=== PATIENT | female | born 1955 ===

== ENCOUNTER 2025-03-21 12:23 | Outpatient (AMB) | payer OTHER, SELFPAY ==
--- NOTE | 2025-03-21 12:27 | A.OFFVIS_ITS ---
Vital Signs 03/21/25 12:29 Height 4 ft 8 in Weight 141 lb BMI 31.6 BP 104/59 L Blood Pressure Location Lt brachial Position Sitting Respiration 16 Pulse 90 Pulse Source Pulse Oximeter Pulse Oximetry (%) 95 Oxygen Delivery Method Room Air Intake Visit Reasons: VERTEBROGENIC LOW BACK PAIN Electronic Integrated Systems Mechanic Required: Yes Electronic Integrated Systems Mechanic Services: Electronic Integrated Systems Mechanic Present Electronic Integrated Systems Mechanic Name: Electronic Integrated Systems Mechanic # [id number] Information Interpreted: clinical only Allergies atorvastatin Allergy (Unknown, Verified 03/21/25 12:38) Unknown ibuprofen (From Motrin) Allergy (Unknown, Verified 03/21/25 12:38) Unknown morphine (From MS Contin) Allergy (Unknown, Verified 03/21/25 12:38) Unknown Medication List - Last Reconciled 03/21/25 by Carol Morales LPN acetaminophen 325 mg PO BID PRN amlodipine-benazepril 5-10 mg 1 cap PO DAILY clonazepam 0.5 mg PO DAILY cyclobenzaprine 10 mg PO BEDTIME doxepin 75 mg PO BEDTIME empagliflozin (Jardiance) 25 mg PO DAILY lactulose 15 mL PO DAILY PRN levothyroxine 50 mcg PO DAILY melatonin 10 mg PO BEDTIME meloxicam 15 mg PO DAILY methocarbamol 750 mg PO BEDTIME metoprolol succinate ER 25 mg PO BID omeprazole 20 mg PO DAILY oxycodone 5 mg PO BID PRN plecanatide (Trulance) 3 mg PO DAILY rosuvastatin 10 mg PO DAILY sennosides (senna) 17.2 mg PO BEDTIME PRN tramadol 50 mg PO BID PRN triamcinolone acetonide 0.025% topical DAILY HPI Comments Details: History of Present Illness The patient is a 69 year old individual presenting with right-sided low back and buttock pain, which has been present for 5 years. The patient denies constant radiating pain down the leg but does experience intermittent symptoms in the leg. There is no associated numbness, weakness, or history of bowel or bladder incontinence. The pain averages an 8/10 in severity and can increase to 10/10. Symptoms are exacerbated by movement, bending, lifting, putting on shoes, prolonged walking, and prolonged sitting, with no known relieving factors. Past medication trials include oxycodone, tramadol, Tylenol, and ibuprofen. The patient has previously been evaluated by spine surgery and was deemed not to be a surgical candidate. Previous interventions included extensive physical therapy, lumbar facet injections, a lumbar radiofrequency ablation, and an L5 transforaminal epidural steroid injection, none of which provided significant relief. A DEXA scan revealed osteopenia. An MRI of the lumbar spine showed reactive changes at the L5-S1 facet joint and L1-L5 pedicle, as well as MODIC type 1 changes at the L5 and S1 vertebral endplates. Pain Description - Location: Right-sided low back and buttock region. - Onset: The pain has been present for 5 years. - Radiation: The patient denies constant radiation but reports intermittent symptoms into the leg. - Severity: Pain is rated as 8/10 on average and can go up to 10/10. - Exacerbating factors: Movements, bending, lifting, putting on shoes, prolonged walking, or prolonged sitting. - Relieving factors: There are no known relieving factors. Physical Exam - Neurologic: No numbness or weakness in the leg. - Musculoskeletal: On examination of the lumbar spine, there was pain with lateral rotation, bending, and flexion; lumbar extension was also limited. Any axial stress on the lumbar spine seemed to exacerbate the pain. Results - Bone Density: A DEXA scan showed osteopenia. - Imaging: MRI of the lumbar spine revealed reactive changes at the L5-S1 facet joint and the L1-L5 pedicle. There was also evidence of MODIC type 1 changes at the L5 and S1 vertebral endplates. Pain Management - Analgesia: The patient's pain is rated as 8/10 on average, reaching up to 10/10. Past medication trials include oxycodone, tramadol, Tylenol, and ibuprofen. - Activities of Daily Living: Pain is exacerbated by bending, lifting, putting on shoes, prolonged walking, and prolonged sitting. 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 Fibromyalgia Brachial neuritis Carpal tunnel syndrome of left wrist Degeneration of cervical intervertebral disc Osteoarthritis Lumbar spondylolysis Shoulder joint pain Chronic low back pain Lumbar radiculopathy Myofascial pain Muscle pain Physical Exam Vital Signs: Last Vital Signs Pulse 90 03/21/25 12:29 Resp 16 03/21/25 12:29 BP 104/59 L 03/21/25 12:29 Pulse Ox 95 03/21/25 12:29 Oxygen Delivery Method Room Air 03/21/25 12:29 BMI result Body Mass Index 31.6 Assessment & Plan Assessment & Plan (1) Vertebrogenic low back pain: Code(s): M54.51 - Vertebrogenic low back pain Category: Medical Plan Plan Patient was informed and verbally consented to the use of an ambient scribe for clinic note documentation during this visit. 1. Vertebrogenic low back pain M54.51 - The patient has chronic axial low back pain with MRI findings of MODIC type 1 changes at the L5 and S1 endplates, consistent with vertebrogenic pain. - The condition has been refractory to conservative management, including physical therapy, various medications, lumbar facet joint injections, lumbar radiofrequency ablation, and a lumbar epidural steroid injection. - Given the failure of other modalities, the patient is considered a reasonable candidate for basivertebral nerve ablation at the L4, L5, and S1 levels. - Authorization for this procedure will be requested from the insurance company. - The procedure will be scheduled once insurance authorization is obtained. Discussion Notes I discussed with the patient that given the history of chronic low back pain, MRI findings of MODIC type 1 changes at L5-S1, and failure to respond to multiple conservative treatments including physical therapy, medications, and various spinal injections, I believe the patient is a reasonable candidate for basivertebral nerve ablation. The proposed procedure involves ablation of the basivertebral nerve at the L4, L5, and S1 levels. I explained that we will proceed with requesting authorization from the insurance company and will schedule the procedure upon approval. The patient expressed understanding of the proposed plan. Patient Instructions - We have recommended a procedure called basivertebral nerve ablation for your chronic low back pain. - Our office will contact your insurance company to get approval for this procedure. - We will call you to schedule the procedure as soon as we receive authorization from your insurance. Coding Level of Care Code New Pt Level 4 (57250) Diagnoses Vertebrogenic low back pain M54.51
[2025-03-21 12:29] VITALS: BP 104/59; PULSE 90; RESP 16; O2SAT 95; BMI 31.6
--- OUTSIDE RECORDS SUMMARY | 2025-03-21 16:05 | XMS_ITS | Clinical Summary ---
Author Organization [facility] Address [address] [place] [address] Care Team Providers Care Product Marketing Programs Manager Name Role Phone Sheree Quiñonez Primary Care Provider [phone] Immunizations Immunization Administration Dates Next Due Moderna SARS-CoV-2 COVID-19, mRNA, LNP-S, preservative free 04/02/2021,07/22/2020,06/24/2020 Surgical History Surgery Date Site/Laterality Comments HYSTERECTOMY 2013 PROCEDURE: HISTORICAL HYSTERECTOMY; COMMENT: for uterine fibroids OTHER SURGICAL HISTORY PROCEDURE: NE PRTL THYROID LOBECTOMY UNI W/WO ISTHMUSECTOMY TUBAL LIGATION PROCEDURE: HISTORICAL TUBAL LIGATION CHOLECYSTECTOMY PROCEDURE: HISTORICAL CHOLECYSTECTOMY Medical History Medical History Date Comments Chronic neck pain fibromyalgia DX:Chronic nec k pain Fibromyalgia DX:Fibromyalgia Brachial neuritis DX:Brachial ne uritis Hypothyroidism DX:Hypothyroidis m HTN (hypertension) DX:HTN (hyper tension) JAIME (obstructive sleep apnea) DX :JAIME (obstructive sleep apnea) HTN (hypertension) DX:HTN (hyper tension) Type 2 diabetes mellitus wit h renal manifestations (CMS/HCC V24, CMS/HCC V28) 02/20/2022 DX: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) Gastroesophageal reflux dise ase without esophagitis 04/03/2022 DX:Gastroesophageal reflux d isease without esophagitis Constipation 04/03/2022 DX:Constipation Sleep apnea DX:Sleep apnea Chronic pain of both knees 04/03/2022 DX:Ch ronic pain of both knees Depression 02/20/2022 DX:Depression Anxiety 04/03/2022 DX:Anxiety Cervical radiculopathy DX:Cervic al radiculopathy Occipital neuralgia 04/03/2022 DX:Occipital neuralgia Family History Medical History Relation Name Comments Hypertension Brother 1 Other: stroke Brother 1 Stroke Brother 2 No Known Problems Father Diabetes Mother Hypertension Mother Stroke Mother Diabetes Sister Hypertension Sister Relation Name Status Comments Brother 1 Brother 2 Father Mother Sister Social History Tobacco Use Types Packs/Day Years Used Date Smoking Tobacco: Former Smokeless Tobacco: Former Alcohol Use Standard Drinks/Week Comments Not Currently 0 (1 standard drink = 0.6 oz pur e alcohol) Comments Unknown Sex and Gender Information Value Date Recorded Sex Assigned at Not on file Legal Sex Female 2:33 PM EST Gender Identity Not on file Sexual Orientation Not on file Obstetrics History Last Filed Vital Signs Vital Sign Reading Time Taken Comments Blood Pressure 120/60 02/06/2023 11:08 AM EDT Pulse 74 02/06/2023 11:08 AM EDT Temperature - - Respiratory Rate - - Oxygen Saturation - - Inhaled Oxygen Concentration - - Weight 63.5 kg (140 lb) 02/06/2023 11:08 AM EDT Height 142.2 cm (4' 8 ) 02/06/2023 11:08 AM EDT Body Mass Index 31.39 02/06/2023 11:08 AM EDT Plan of Treatment Health Maintenance Due Date Last Done Comments Breast Cancer Screening 1955 Colorectal Cancer Screening: Colonoscopy 1955 Diabetes: Annual GFR (Glomerular Filtration Rate) 1955 Diabetes: Annual Foot Exam 1965 Diabetes: Annual Retina Eye Exam 1965 DTaP,Tdap,and Td Vaccines (1 - Tdap) 1974 Pneumococcal Vaccine: 50+ Years (1 of 2 - PCV) 1974 RSV Immunization Adult Patients (1 - Risk 50-74 years 1-dose series) 2005 Zoster Vaccines (1 of 2) 2005 Cholesterol Screening (Lipid Panel) 03/30/2022 Diabetes: Annual Urine Albumin-Creatinine Ratio (uACR) 03/30/2022 Diabetes: Blood Sugar Contro l Test (HGBA1C) 03/30/2022 Falls Risk Assessment 03/30/2022 Hepatitis C Screening 03/30/2022 Hypertension/CHF/CAD Annual BMP Blood Test 03/30/2022 Osteoporosis Screening (Bone Density Screening) 03/30/2022 Social Influencers of Health Screening 03/30/2022 Depression Screening 04/21/2024 COVID-19 Vaccine (4 - 2024-2 6 season) 2024 04/02/2021, 07/22/2020, 06/24/2020 Influenza Vaccine (#1) 2024 Varicella Vaccines Aged Out 03/13/2018 No longer eligible based on patient's age to complete this topic HIB Vaccines Aged Out No longer eligi ble based on patient's age to complete this topic HPV Vaccines Aged Out No longer eligi ble based on patient's age to complete this topic Hepatitis A Vaccines Aged Out No long er eligible based on patient's age to complete this topic Hepatitis B Vaccines Aged Out No long er eligible based on patient's age to complete this topic IPV Vaccines Aged Out No longer eligi ble based on patient's age to complete this topic MMR Vaccines Aged Out No longer eligi ble based on patient's age to complete this topic Meningococcal ACWY Vaccine Aged Out N o longer eligible based on patient's age to complete this topic Meningococcal B Vaccine Aged Out No l onger eligible based on patient's age to complete this topic RSV Immunization Patients Under 20 months Aged Out No longer eligible b ased on patient's age to complete this topic Care Teams Product Marketing Programs Manager Relationship Specialty Start Date End Date Sheree Quiñonez PA [address] [place] [id number] PCP - General Internal Medicine 08/19/18
--- OUTSIDE RECORDS SUMMARY | 2025-03-21 16:05 | XMS_ITS | Data Portability ---
Author Organization [facility] [place] [facility], [facility] Address [address] [place] [address] Care Team Providers Care Senior Bi Architect Name Role Phone [facility] Primary Care P [email or web address] Assessment Encounter Date Assessment Date Assessment LastModified by Organization Details LastModified Time 08/24/2024 08/24/2024 Assessment: Pain in her right shoulder and B elbows seems to be improving. Good tolerance to all ther-ex for strengthening but quickly fatigues. Plan: Continue to progress UE strengthening as tolerated (08/31). [email or web address] Not available 08/24/2024 15:03:49 08/26/2024 08/26/2024 Assessment: Pain in her right shoulder and B elbows seems to be improving. Good tolerance to all ther-ex for strengthening but quickly fatigues. Plan: Continue to progress UE strengthening as tolerated (08/31). [email or web address] Not available 08/25/2024 19:34:12 08/31/2024 08/31/2024 Assessment: Pt appears to understand HEP. Plan: D/C today. [email or web address] Not available 08/31/2024 14:32:35 09/01/2024 09/01/2024 69-year-old ojlgj-qltu-yvxgxox t female who returns today for follow-up evaluation of bilateral medial and lateral epicondylitis and numbness of the right upper extremity status post a course of physical therapy with resolution of pain and numbness and tingling. She may follow-up symptomatically going forward [email or web address] Not available 09/01/2024 13:16:34 10/15/2024 10/15/2024 I am seeing the patient today under the supervision of Dr. Madera who was available but who did not see the patient. HPI: Patient comes in for recheck of right shoulder pain. Was last seen by my colleague for underlying impingement and received a cortisone injection with only a few weeks. Pain is returned over the last couple weeks over the lateral brachium. Has had no new injuries no other modalities. Past family, medical, social history and review of systems has been reviewed, updated and is located in the patient s chart. Examination: The patient is well appearing and in no apparent distress. Alert and oriented x3. Gait is symmetric. Vital signs per intake sheet . Evaluation of the right shoulder has no effusion erythema or warmth. Good muscle bulk when compared bilaterally. Has supple range of motion of that shoulder. 5/5 strength rotator cuff and biceps tendon. Positive impingement arc negative cross body. Impression: Impingement right shoulder Plan: Nature diagnosis discussed with patient today. Both surgical and nonsurgical options are reviewed. Conservative measures were discussed at length including but not limited to physical therapy, bracing, anti-inflammatorie s and injection therapies. Patient would like to try another injection. Follow-up as symptoms dictate. Associated Content [facility] reMail speech recognition residential recycle driver software was used to create portions of this document. An attempt at proofreading has been made to minimize errors. Please call for corrections. [email or web address] Not available 10/15/2024 13:17:18 Plan of Treatment Reminders Order Date Submit Date Provider Last Modified By Organization Details Last Modified Time Details Appointments None record ed. Lab None record ed. Referral None record ed. Procedures None record ed. Surgeries None record ed. Imaging None record ed. Medication Orders None record ed. Patient TargetsNo targets recorded. Patient InstructionsNo instructions recorded. Reason for Referral None Reported. Problems Name Problem SNOMED Code Status Onset Date Resolution Date Notes Provider Name and Address Organization Details Recorded Time No complaint s 921812737 Active Status: 'I'; Not Available [facility] 4 09:11:13 Idiopathi c osteoarth ritis 298401213 Active 2019 Problem Code: M19.071; Problem Code Type: ICD-10; Status: 'A'; Not Available [facility] 4 10:55:43 Pain of left knee joint 864283469836 107 Active 2023 alvarado antoni bearden [place] - [facility] 4 13:04:42 Postmenop ausal osteopeni a 235370166 Active 2023 Jovani Mackenzie MD [address], [place], [address] , [facility] 4 09:26:30 Lumbar spondylos is 801230092 Active 2023 Jovani Mackenzie MD [address], [place], [address] , [facility] 4 09:26:31 Lumbar radiculop athy 372840593 [facility] 4 11:55:26 Pain of elbow region 27094851 Active 2024 Wale Miramontes PA-C [address], [place], [address] , [facility] 5 10:17:34 Bilateral lateral elbow tendinopa thy 612494589792 20888 Active 2024 Wale Miramontes PA-C [address], [place], [address] , [facility] 5 10:17:34 Bilateral medial epicondyl itis of elbows 153890918929 05301 Active 2024 Wale Miramontes PA-C [address], [place], [address] , [facility] 5 10:17:34 Problem Notes None recorded. Procedures Surgical History Date Name Laterality Status Provider Name and Address Organization Details Recorded Time 5 Sports Shoulder completed Fam Ricks PA-C [address], [place], [address], [facility] 10/15/2024 08:37:43 5 85781 Therapeutic Exercise (1:1) completed Reina Christianson PTA [address], [place], [address], [facility] 08/31/2024 14:12:44 5 81594: Hot or Cold Pack completed Reina Christianson PTA [address], [place], [address], [facility] 08/30/2024 13:32:05 5 40353: Manual therapy completed Reina Christianson PTA [address], [place], [address], [facility] 08/31/2024 14:12:46 5 36481 Therapeutic Exercise (1:1) completed Reina Christianson PTA [address], [place], [address], [facility] 08/25/2024 19:34:12 5 67436: Hot or Cold Pack completed Reina Christianson PTA [address], [place], [address], [facility] 08/25/2024 19:34:12 5 35934: Manual therapy completed Reina Christianson PTA [address], [place], [address], [facility] 08/25/2024 19:34:12 5 98009 Therapeutic Exercise (1:1) completed Nicho Hutton DPT [address], [place], [address], [facility] 08/23/2024 20:38:42 5 10867: Hot or Cold Pack completed Nicho Hutton DPT [address], [place], [address], [facility] 08/23/2024 20:38:42 5 23799: Manual therapy completed Nicho Hutton DPT [address], [place], [address], [facility] 08/23/2024 20:38:43 5 98201 Therapeutic Exercise (1:1) completed Reina Christianson, EQUIPMENT MAINTENANCE TECH [address], [place], [address], [facility] 08/19/2024 13:40:31 5 65491: Hot or Cold Pack completed Reina Christianson, EQUIPMENT MAINTENANCE TECH [address], [place], [address], [facility] 08/18/2024 20:11:17 5 79256: Manual therapy completed Reina Christianson, EQUIPMENT MAINTENANCE TECH [address], [place], [address], [facility] 08/18/2024 20:11:17 5 37226 Therapeutic Exercise (1:1) completed Reina Christianson, EQUIPMENT MAINTENANCE TECH [address], [place], [address], [facility] 08/17/2024 13:34:52 5 11354: Hot or Cold Pack completed Reina Christianson, EQUIPMENT MAINTENANCE TECH [address], [place], [address], [facility] 08/16/2024 20:15:59 5 85872: Manual therapy completed Reina Christianson, EQUIPMENT MAINTENANCE TECH [address], [place], [address], [facility] 08/17/2024 13:34:40 5 97647 Therapeutic Exercise (1:1) completed Reina Christianson, EQUIPMENT MAINTENANCE TECH [address], [place], [address], [facility] 08/11/2024 20:06:28 5 87344: Hot or Cold Pack completed Reina Christianson, EQUIPMENT MAINTENANCE TECH [address], [place], [address], [facility] 08/11/2024 20:06:28 5 05281 Therapeutic Exercise (1:1) completed Reina Christianson, EQUIPMENT MAINTENANCE TECH [address], [place], [address], [facility] 08/09/2024 15:05:48 5 46036: Hot or Cold Pack completed Nicho Hutton DPT [address], [place], [address], [facility] 08/10/2024 09:35:35 5 64041 Therapeutic Exercise (1:1) completed Reina Christianson PTA [address], [place], [address], [facility] 08/04/2024 16:43:17 5 08530: Manual therapy completed Reina Christianson PTA [address], [place], [address], [facility] 08/04/2024 16:43:17 5 57487 Therapeutic Exercise (1:1) completed Reina Christianson PTA [address], [place], [address], [facility] 08/02/2024 15:10:44 5 58298: Manual therapy completed Reina Christianson PTA [address], [place], [address], [facility] 08/02/2024 15:10:44 5 33830 Therapeutic Exercise (1:1) completed Reina Christianson PTA [address], [place], [address], [facility] 07/28/2024 19:25:21 5 37789: Manual therapy completed Reina Christianson PTA [address], [place], [address], [facility] 07/29/2024 15:16:21 5 47225 Therapeutic Exercise (1:1) completed Reina Christianson PTA [address], [place], [address], [facility] 07/26/2024 19:39:24 5 88767: Manual therapy completed Reina Christianson PTA [address], [place], [address], [facility] 07/27/2024 15:07:29 5 57321 Therapeutic Exercise (1:1) completed Nicho Hutton DPT [address], [place], [address], [facility] 07/22/2024 13:10:46 5 39169: Manual therapy completed Nicho Hutton DPT [address], [place], [address], [facility] 07/23/2024 13:43:11 5 84036 Therapeutic Exercise (1:1) completed Nicho Hutton DPT [address], [place], [address], [facility] 07/20/2024 13:57:48 5 82062: Manual therapy completed Nicho Hutton DPT [address], [place], [address], [facility] 07/20/2024 13:57:54 5 53108 Therapeutic Exercise (1:1) completed Nicho Hutton DPT [address], [place], [address], [facility] 07/15/2024 14:28:03 5 05861: Low complexity PT Eval completed Nicho Hutton DPT [address], [place], [address], [facility] 07/15/2024 14:28:10 4 38379 Therapeutic Exercise (1:1) completed Nicho Hutton DPT [address], [place], [address], [facility] 01/14/2024 09:46:30 4 85430: Low complexity PT Eval completed Nicho Hutton DPT [address], [place], [address], [facility] 01/14/2024 09:46:32 4 Sports Shoulder completed Reid Randolph MD [address], [place], [address], [facility] 11/03/2023 13:29:55 Imaging Results None recorded. Procedure Notes None recorded. Medical Equipment None Reported. Allergies Allergen ID Allergen Name Allergen Category Reaction Reaction Severity Criticality Documentation Date Start Date Code Code System Note Provider Name and Address Organization Details Recorded Time 927359 Motrin medicatio n Not available Not available Not available 02/05/202491691 8 RxNorm CAROLYN AMY [facility] 4 08:31:19 49227 atorvasta tin calcium medicatio n Not available Not available Not available 06/23/20232017 51530 RxNorm CAROLYN REYES [facility] 4 08:31:15 Medications Name Sig Start Date Stop Date Status Note LastModified by Organization Details LastModified Time melatonin tab 10mg active Not Available Not Available Not Available doxepin 50 mg capsule TAKE 1 CAPSULE BY MOUTH AT BEDTIME active Not Available Not Available No t Available acetaminoph en 325 mg tablet TAKE 1 TABLET BY MOUTH two (2) times a day NEEDED FOR PAIN. TAKE WITH tramadol two (2) times a day active Not Available Not Available No t Available amitriptyli ne 75 mg tablet 02/04 completed Not Available Not Available Not Available senna 8.6 mg tablet active Not Available Not Available No t Available meloxicam 15 mg tablet TAKE 1 TABLET BY MOUTH DAILY 11/20 completed Not Available Not Available Not Available sucralfate 1 gram tablet 04/29 completed Not Available Not Available Not Available FreeStyle Lancets 28 gauge USE TO TEST FINGER STICK BLOOD SUGAR two (2) times a day 09/01 completed Not Available Not Available Not Available clonazepam 0.5 mg tablet TAKE 1 TABLET BY MOUTH EVERY NIGHT AT BEDTIME active Not Available Not Available No t Available doxepin 75 mg capsule TAKE 1 CAPSULE BY MOUTH EVERY NIGHT AT BEDTIME active Not Available Not Available No t Available tramadol 50 mg tablet TAKE 1 TABLET BY MOUTH EVERY TWELVE HOURS NEEDED FOR PAIN. TAKE WITH acetamino phen 325mg active Not Available Not Available No t Available amitriptyli ne 50 mg tablet 02/04 completed Not Available Not Available Not Available acetaminoph en 500 mg tablet 11/20 completed Not Available Not Available Not Available acetaminoph en ER 650 mg tablet,exte nded release Take 1 tablet every 8 hours by oral route for 30 days. 02/04 completed Not Available Not Available Not Available meloxicam 7.5 mg tablet TAKE 1 TABLET BY MOUTH ONCE DAILY active Not Available Not Available No t Available prednisolon e acetate 1 % eye drops,suspe nsion 11/20 completed Not Available Not Available Not Available methocarbam ol 750 mg tablet active Not Available Not Available Not Available amlodipine 5 mg-benazepr il 10 mg capsule TAKE 1 CAPSULE BY MOUTH ONCE DAILY active Not Available Not Available No t Available meclizine 25 mg tablet 04/29 completed Not Available Not Available Not Available glipizide ER 2.5 mg tablet, extended release 24 hr TAKE 1 TABLET BY MOUTH DAILY 11/20 completed Not Available Not Available Not Available levothyroxi ne 50 mcg tablet TAKE 1 TABLET BY MOUTH ONCE DAILY active Not Available Not Available No t Available esomeprazol e magnesium 40 mg capsule,del ayed release TAKE 1 CAPSULE BY MOUTH EVERY MORNING BEFORE BREAKFAST 11/20 completed Not Available Not Available Not Available gabapentin 300 mg capsule 02/04 completed Not Available Not Available Not Available omeprazole 20 mg capsule,del ayed release active Not Available Not Available Not Available oxycodone 5 mg tablet TAKE 1 TABLET BY MOUTH two (2) times a day NEEDED FOR PAIN 04/29 completed Not Available Not Available Not Available escitalopra m 10 mg tablet TAKE 1 TABLET BY MOUTH EVERY DAY IN THE MORNING 02/04 completed Not Available Not Available Not Available ezetimibe 10 mg tablet 11/20 completed Not Available Not Available Not Available cyclobenzap rine 5 mg tablet TAKE 1 TABLET BY MOUTH two (2) times a day active Not Available Not Available No t Available rosuvastati n 10 mg tablet TAKE 1 TABLET BY MOUTH ONCE DAILY active Not Available Not Available No t Available duloxetine 30 mg capsule,del ayed release 02/04 completed Not Available Not Available Not Available lactulose 10 gram/15 mL oral solution TAKE 15ml BY MOUTH ONCE DAILY NEEDED FOR CONSTIPAT ION active Not Available Not Available No t Available FreeStyle Lite Meter kit 02/04 completed Not Available Not Available Not Available FreeStyle Lite Strips USE TO TEST FINGER STICK BLOOD SUGAR 3 (THREE) TIMES A DAY WITH A MEAL 09/01 completed Not Available Not Available Not Available diclofenac 1 % topical gel 11/20 completed Not Available Not Available Not Available melatonin 5 mg tablet 02/04 completed Not Available Not Available Not Available calcium 200 mg (as citrate)-vi tamin D3 6.25 mcg (250 unit) tablet TAKE 1 TABLET BY MOUTH ONCE DAILY active Not Available Not Available No t Available melatonin 10 mg tablet 02/04 completed Not Available Not Available Not Available Jardiance 10 mg tablet TAKE 1 TABLET BY MOUTH DAILY 11/20 completed Not Available Not Available Not Available Jardiance 25 mg tablet active Not Available Not Available Not Available Trulicity 1.5 mg/0.5 mL subcutaneou s pen injector INJECT THE CONTENT OF 1 syringe SUBCUTANE OUSLY EACH WEEK active Not Available Not Available No t Available Trulicity 0.75 mg/0.5 mL subcutaneou s pen injector 02/04 completed Not Available Not Available Not Available Trulance 3 mg tablet TAKE 1 TABLET BY MOUTH DAILY active Not Available Not Available No t Available Pure Comfort Safety Lancets 30 gauge 04/29 completed Not Available Not Available Not Available Vitals Date Recorded Body height Body mass index (BMI) Body weight Provider Name and Address Organization Details Last Updated DateTime 09/01/2024 142.24 cm 32.7 kg/m2 98823.49 g CHERELLE AGUIAR [facility] 09/01/2024 13:07:29 Date Recorded Body height Provider Name an d Address Organization Details Last Updated DateTime 10/15/2024 142.24 cm CHIOMA GALLEGOS [facility] 10/15/2024 12:51:43 Social History None recorded. Functional Status None recorded. Mental Status None recorded. Family History Nothing Reported. Medical History No medical history recorded. Gynecological HistoryNo gynecological history recorded. Obstetrics History GPAL:G 0 P 0 0 0 0 Past Encounters Encounter ID Performer Location Encounter Start Date Encounter Closed Date Diagnosis/Indication Diagnosis SNOMED-CT Code Diagnosis ICD10 Code Diagnosis IMO Codes Diagnosis Note [id number] Reid Randolph MD [facility] [address] [place] [address] 11/03/2023 12:09:18 11/27/2023 12:40:52 Cervical radiculopathy 52956026 M54.12 Impingemen t syndrome of right shoulder region 0797054300 57914 M75.41 [id number] Spencer Bello PA-C [facility] [address] [place] [address] 11/21/2023 12:30:33 12/17/2023 07:13:58 Pain of left knee joint 1728513573 82488 M25.562 Osteoarthr itis of left knee joint 3202891622 88574 M17.12 [id number] Jacobo Michaud MD [facility] [address] [place] [address] 12/10/2023 15:14:08 01/02/2024 12:30:32 Osteoarthritis of left knee joint 0717913678 25819 M17.12 [id number] Nicho Hutton DPT [facility] [address] [place] [address] 01/14/2024 08:33:45 01/14/2024 09:36:55 Osteoarthritis of hip 180406703 M16.12 [id number] Thais Simon APRN [facility] [address] [place] [address] 01/22/2024 12:26:35 02/07/2024 04:00:07 Osteoarthritis of left knee joint 3373480637 18718 M17.12 [id number] Jovani Mackenzie MD [facility] [address] [place] [address] 02/05/2024 08:12:52 02/20/2024 15:30:02 Lumbar spondylosis 607705544 M47.816 [id number] Postmenopa usal osteopenia 276667340 M85.80 Z78.0 [id number] [id number] Mai Shah PA-C [facility] [address] [place] [address] 04/08/2024 12:20:12 04/29/2024 10:23:17 Lumbar radiculopathy 650692365 M54.16 [id number] Jovani Mackenzie MD [facility] [place] [address] [place] [address] 04/29/2024 09:55:08 05/12/2024 06:08:40 Lumbar spondylosis 118518653 M47.816 [id number] Low back pain 680974695 M54.50 Postmenopa usal osteopenia 040126336 M85.80 Z78.0 8179535550 [id number] REINA Farnsworth [facility] [address] [place] [address] 06/02/2024 12:26:20 06/21/2024 14:08:46 Pain of elbow region 85209010 M25.521 M25.522 69951612 Bilateral medial epicondylitis of elbows 7950885680 7811933 M77.01 M77.02 [id number] Bilateral lateral elbow tendinopathy 3544635375 8337301 M77.11 M77.12 [id number] C[facility] [address] [place] [address] 07/15/2024 13:06:31 07/15/2024 14:09:21 Bilateral lateral elbow tendinopathy 9753116395 2985050 M77.11 M77.12 [id number] iNcho Hutton DPT [facility] [address] [place] [address] 07/20/2024 12:58:23 07/20/2024 14:43:37 Bilateral lateral elbow tendinopathy 8026967902 6441889 M77.11 M77.12 [id number] Nicho Hutton, DPT [facility] [address] [place] [address] 07/23/2024 12:56:05 07/23/2024 13:41:56 Bilateral lateral elbow tendinopathy 0565799816 1912885 M77.11 M77.12 [id number] Reina Christianson, EQUIPMENT MAINTENANCE TECH [facility] [address] [place] [address] 07/27/2024 14:10:12 07/27/2024 15:09:58 Bilateral lateral elbow tendinopathy 6968650272 [id number] M77.11 M77.12 [id number] Reina Christianson, EQUIPMENT MAINTENANCE TECH [facility] [address] [place] [address] 07/29/2024 14:05:10 07/29/2024 15:41:28 Bilateral lateral elbow tendinopathy 6087337803 7647745 M77.11 M77.12 79303621 [id number] Reina Christianson, EQUIPMENT MAINTENANCE TECH [facility] [address] [place] [address] 08/03/2024 13:30:28 08/03/2024 14:42:43 Bilateral lateral elbow tendinopathy 5364892413 4332425 M77.11 M77.12 [id number] [id number] Reina Christianson, EQUIPMENT MAINTENANCE TECH [facility] [address] [place] [address] 08/05/2024 13:34:07 08/05/2024 14:39:20 Bilateral lateral elbow tendinopathy 6586997588 6552698 M77.11 M77.12 [id number] Nicho Hutton, DPT [facility] [address] [place] [address] 08/10/2024 13:03:35 08/10/2024 13:53:09 Bilateral lateral elbow tendinopathy 7733639127 2225619 M77.11 M77.12 [id number] Reina Christianson, EQUIPMENT MAINTENANCE TECH [facility] [address] [place] [address] 08/12/2024 13:07:19 08/12/2024 14:56:10 Bilateral lateral elbow tendinopathy 4889811671 2790766 M77.11 M77.12 [id number] [id number] Reina Christianson, EQUIPMENT MAINTENANCE TECH [facility] [address] [place], [place] [address] 08/17/2024 12:29:56 08/17/2024 13:35:41 Bilateral lateral elbow tendinopathy 2653191653 5372769 M77.11 M77.12 [id number] Reina Christianson, EQUIPMENT MAINTENANCE TECH [facility] [address] [place], [place] [address] 08/19/2024 12:49:37 08/19/2024 13:38:21 Bilateral lateral elbow tendinopathy 0624797917 [id number] M77.11 M77.12 [id number] Nicho Hutton, DPT [facility] [address] [place] [address] 08/24/2024 12:30:06 08/24/2024 14:16:07 Bilateral lateral elbow tendinopathy 2666095837 [id number] M77.11 M77.12 [id number] Reina Christianson, EQUIPMENT MAINTENANCE TECH [facility] [address] [place] [address] 08/26/2024 12:17:01 08/26/2024 13:32:21 Bilateral lateral elbow tendinopathy [id number] M77.11 M77.12 [id number] Reina Christianson, EQUIPMENT MAINTENANCE TECH [facility] [address] [place] [address] 08/31/2024 12:28:44 08/31/2024 14:40:46 Bilateral lateral elbow tendinopathy [id number] M77.11 M77.12 [id number] Wale Miramontes PA-C [facility] [address] [place] [address] 09/01/2024 12:26:57 09/07/2024 15:16:34 Bilateral medial epicondylitis of elbows [id number] M77.01 M77.02 [id number] Bilateral lateral elbow tendinopathy [id number] M77.11 M77.12 [id number] REINA Amos [address] [place] [address] 10/15/2024 12:31:28 10/20/2024 11:50:55 Impingement syndrome of right shoulder region [id number] M75.41 [id number] Health Concerns Section Related Observation LastModified by Organization Detai ls LastModified Time None Recorded Concern Status LastModified by Organization Details LastModified Time None Recorded Advance Directives Directive None Recorded Payers Insurance Date Sequence Insurance Name Policy Number Policy Merritt Covered Member ID Merritt Member ID Guarantor Name 10/20/2024 1 [facility] - DOS ON OR AFTER 2022 - ONE CARE (MEDICARE REPLACEMENT/ADV ANTAGE - HMO) Bisi Morrissey [id number] Bisi Morrissey Notes Date Note Type Note Provider Name and Address Organization Details Recorded Time 08/24/2024 text/html Patient states1/10 pain in her right shoulder. No pain in her B elbows. Nicho Hutton DPT [address], [place], [address], [facility] 08/24/2024 15:06:43 08/26/2024 text/html Patient states1/10 pain in her right shoulder. No pain in her B elbows. Reina Christianson PTA [address], [place], [address], [facility] 08/26/2024 14:40:55 08/31/2024 text/html Patient states1/10 pain in her right shoulder. No pain in her B elbows. Reina Christianson PTA [address], [place], [address], [facility] 08/31/2024 14:33:14 09/01/2024 text/html ROS as noted in the HPI I am seeing this patient under the supervision of Dr. Thomas who was available but who did not see the patient Chief Complaint: Follow-up evaluation for bilateral medial and lateral epicondylitis and numbness of the right upper extremity HPI: 69-year-old [id number]-ciorgrio female who returns today for follow-up evaluation of bilateral medial and lateral epicondylitis and numbness of the right upper extremity status post a course of physical therapy. She notes resolution of her numbness and tingling, as well as resolution of her elbow pain bilaterally with therapy Wale Miramontes PA-C [address] [facility] [address], [place], [address], [facility] 09/01/2024 13:16:43 OBGyn Episode No OBEpisode recorded.
== END 2025-03-21 13:00 | disposition home or self-care (01) ==
LOC: HO.PMC 12:24
PROVIDERS: PCP Family Medicine; Visit Provider Internal Medicine
DX: M54.51 Vertebrogenic low back pain (principal)
CPT/HCPCS: 99204

== ENCOUNTER → 2025-03-21 12:23 | Outpatient (BNVA) | payer OTHER, SELFPAY | PROVIDERS: PCP Family Medicine; Visit Provider Internal Medicine | DX: M54.51 Vertebrogenic low back pain (principal) | CPT/HCPCS: 99202 ==